=== PATIENT | female | born 1945 | race Caucasian/White ===

== ENCOUNTER 2019-05-16 08:57 | Emergency (ER) | payer MEDICARE ==
[~2019-05-16] VITALS: Ht 167.6 cm; Wt 80.9 kg
[2019-05-16] MEDS ORDERED: TETANUS/DIPHTHERIA TOX ADULT 0.5 ML SYR IM STA (09:08)
[2019-05-16] MEDS ORDERED: TETANUS/DIPHTHERIA TOX ADULT 0.5 ML SYR ONE (09:13)
[2019-05-16] MEDS ORDERED: MUPIROCIN 2% OINT 22 GM TUBE TOP ONE (09:15)
[2019-05-16] MEDS: CLINDAMYCIN HCL 150 MG CAP PO ONE ×2 (09:24→09:27)
[2019-05-16] MEDS ORDERED: CIPROFLOXACIN 500 MG TAB ONE (09:30)
[2019-05-16] MEDS ORDERED: NEOMYCIN/POLYMYX/BACITR OINT 0.9 GM PKT ONE (09:30)
[2019-05-16] MEDS ORDERED: CIPROFLOXACIN 500 MG TAB PO STA (09:58)
[2019-05-16 10:01] VITALS: BP 154/70
== END 2019-05-16 09:47 | disposition home or self-care (01) ==
LOC: FSED 08:57
DX: S40.872A Other superficial bite of left upper arm, initial encounter (principal); S60.571A Other superficial bite of hand of right hand, initial encounter; S60.871A Other superficial bite of right wrist, initial encounter; W55.01XA Bitten by cat, initial encounter; Y92.008 Other place in unspecified non-institutional (private) residence as the place of occurrence of the external cause; F32.9 Major depressive disorder, single episode, unspecified; Z86.69 Personal history of other diseases of the nervous system and sense organs
CPT/HCPCS: 90471; 90714; 96372; 99283

== ENCOUNTER 2024-05-02 16:40 | Emergency (ER) | payer MEDICARE ==
[~2024-05-02] VITALS: Ht 165.1 cm; Wt 86.2 kg
[2024-05-02 16:52] VITALS: PULSE 77; RESP 16; TEMP 98.2; O2SAT 97
[2024-05-02] MEDS ORDERED: PAROXETINE HCL20 MG PO (17:09)
[2024-05-02] MEDS ORDERED: ROPINIROLE HCL1 MG PO (17:09)
[2024-05-02] MEDS ORDERED: EXEMESTANE25 MG (17:09)
[2024-05-02] MEDS ORDERED: CEPHALEXIN500 MG PO (17:18)
[2024-05-02] MEDS: CEPHALEXIN MONOHYDRATE 250 MG CAP PO ONE (17:32)
== END 2024-05-02 17:40 | disposition home or self-care (01) ==
LOC: FSED 16:43
DX: R10.30 Lower abdominal pain, unspecified (principal); N39.0 Urinary tract infection, site not specified; R51.9 Headache, unspecified; F32.A Depression, unspecified; G25.81 Restless legs syndrome; Z85.3 Personal history of malignant neoplasm of breast
CPT/HCPCS: 81003; 87086; 99283